=== PATIENT | female | born 1945 | race Caucasian/White ===

== ENCOUNTER 2025-02-06 14:52 | Emergency (ER) | payer MEDICARE, OTHER ==
[~2025-02-06] VITALS: Ht 157.5 cm; Wt 90.0 kg
[~2025-02-06 14:52] MED LIST: CETI-90 PO; LISI5TAB PO; MULT-1141 PO; OSC500T PO; RIVA20TA PO; SIMV-42 PO; VIT D PO
--- NOTE | 2025-02-06 15:07 | ELECTROCARDIOGRAPH REPORT ---
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 Scott Ames Measurements Intervals [place] Rate: 123 P: 58 [place]: 168 QRS: 41 QRSD: 83 T: 50 QT: 299 QTc: 428 Interpretive Statements Sinus tachycardia Low voltage, precordial leads Electronically Signed On 02-06-2025 16:08:[address] Scott Ames Please click the below link to view image of tracing.
--- NOTE | 2025-02-06 15:22 | Physician Documentation ---
History of Present Illness ~ Chief Complaint: Hyperthermia Stated Complaint: HYPERTHERMIA Time Seen by MD: 15:00 OK to notify your PCP?: Yes Source: patient, RN/MD, EMS, RN notes reviewed, EMS notes reviewed, old records Mode of Arrival: EMS Exam Limitations: no limitations HPI 79 year old female seen in bed nine presents to the emergency department via EMS for complaints of heat exhaustion. She states that she was out today in the heat when she began feeling warm and flush. Along with feeling warm she began to feel weak and she states she felt her legs give out while headed back to her car. At this time she was picked up by EMS and given a liter of fluids en route. When EMS reached her she had a heart rate in the 150s but it has now decreased to be in the 120s. Upon arrival she still complains of feeling warm but denies any chest pain or shortness of breath. She endorses daily alcohol use. Of note patient has a history of skin cancer and she had an MRI last week revealing that she is now cancer free. Patient denies any other associated symptoms at this time. Patient denies any other alleviating or exacerbating factors. Medication Reconciliation Allergies: Coded Allergies: Penicillins (Unverified Allergy, Unknown, 02/06/25) RASH Scheduled Calcium Carbonate* (Oscal*), 1 TAB PO DAILY, (Reported) Cetirizine HCl (Zyrtec), 1 TABLET PO DAILY, (Reported) Lisinopril (Prinivil), 1 TABLET PO DAILY, (Reported) Mu-Vits-Min Th/Lycopene/Lutein (Centrum Silver Tablet), 1 EACH PO DAILY, (Reported) Rivaroxaban (Xarelto), PO DAILY, (Reported) Simvastatin* (Zocor*), 2 TABLET PO HS, (Reported) [Vit D], PO DAILY, (Reported) Past Medical History Past Medical History: Hypertension, *CANCER* Smoking Status: Never smoker Alcohol Use: Heavy Drug Use: none Review of Systems All Other Systems at this time: Reviewed and Negative ROS As stated above in the HPI, otherwise all systems are reviewed and negative. Physical Exam Vital Signs: RN Vital Signs have been reviewed: Yes, Temperature: 98.7, Source: Oral, Heart Rate: 124, Respiratory Rate: 16, BP: 124/49, Pulse Oximetry: 93, Weight: 90.000 Oxygen Flow Rate: 0 Pulse Oximetry Reflects: adequate oxygenation Physical Exam General: Patient is warm, red, and flushed. The patient is well developed, well nourished, nontoxic appearing and is in no acute distress. Skin: [place], warm and dry with no rashes. HEENT: Head was normocephalic and atraumatic. Eyes - pupils equal, round, reactive to light and accommodation. Extraocular movements were intact. Conjunctivae were nonicteric. Ears - bilateral tympanic membranes were normal. The mouth and oropharynx were clear with moist mucous membranes. There were no pharyngeal exudates or erythema. Neck: Supple and nontender. There was no jugular venous distention, lymphadenopathy, thyromegaly or masses. Chest: Clear to auscultation bilaterally without wheezes, rales or rhonchi. No accessory muscle use. No dullness to percussion. Heart: Rapid heart rate. S1, S2. No murmurs. Palpation of the chest wall was normal. No rubs or thrills. Abdomen: Soft, nontender and nondistended. Positive bowel sounds. No guarding or rebound. No hepatosplenomegaly or palpable masses. Extremities: No cyanosis, clubbing or edema. The patient moves all extremities. Pulses were equal and symmetric. Neurologic: Cranial nerves II-XII were intact. Sensation was intact to light touch throughout. Motor strength was 5/5 in all four extremities. Deep tendon reflexes were intact in both upper and lower extremities. Psychologic: The patient was oriented to person, place and time. The patient demonstrated appropriate judgement and insight. Progress Results/Orders Reviewed/noted all lab results: Yes Results/Orders Orders - TOBIAS SIN MD Urinalysis, Cult If Indicated (02/06/25 15:00) Electrocardiogram (02/06/25 15:00) Chest,Single View (02/06/25 15:00) Monitor (02/06/25 15:00) Saline Lock (02/06/25 15:00) Completed Orders - TOBIAS SIN MD Cbc/Diff (02/06/25 15:00) Lipase (02/06/25 15:00) Ethanol (02/06/25 15:00) MG (02/06/25 15:00) Myoglobin (02/06/25 15:00) CK (02/06/25 15:00) Pt Inr (02/06/25 15:00) PTT (02/06/25 15:00) Electrocardiogram (02/06/25 15:00) Chest,Single View (02/06/25 15:00) Normal Saline 1000ml (Sodium Chloride 10 (02/06/25 15:00) Nothing By Mouth (02/06/25 Dinner) BMP (02/06/25 15:00) Hs Troponin I W Calculations (02/06/25 15:00) Medications Received in ER Medications (Trade) Dose Ordered Sig/[place]ent[place] Route PRN Reason Start Time Stop Time Status Last Admin Dose Admin (sodium chloride 1000ml IV soln) 1,000 ml ONCE ONCE IVB 02/06/25 15:00 02/06/25 15:02 DC 02/06/25 15:36 1,000 ML Vital Signs 02/06/25 02/06/25 02/06/25 02/06/25 15:11 15:42 15:42 18:01 Temp 98.7 98.7 98.7 Pulse 124 112 20 Resp 16 20 20 20 B/P (MAP) 124/49 124/49 (74) 124/49 Pulse Ox 93 95 95 O2 Flow Rate 0 0 FiO2 37 Laboratory Tests Test 02/06/25 15:16 White Blood Count 4.4 L Red Blood Count 3.35 L Hemoglobin 11.4 L Hematocrit 33.8 L Mean Corpuscular Volume 100.9 H Mean Corpuscular Hemoglobin 33.9 H Mean Corpuscular Hemoglobin Concent 33.6 Red Cell Distribution Width 14.5 Platelet Count 157 Mean Platelet Volume 7.3 L Neutrophils (%) (Auto) 61.0 Lymphocytes (%) (Auto) 21.8 Monocytes (%) (Auto) 12.7 H Eosinophils (%) (Auto) 3.9 Basophils (%) (Auto) 0.6 Neutrophils # (Auto) 2.7 Lymphocytes # (Auto) 1.0 L Monocytes # (Auto) 0.6 Eosinophils # (Auto) 0.2 Basophils # (Auto) 0.0 CBC Comment Prothrombin Time 10.7 INR International Normalized Ratio 1.0 Activated Partial Thromboplast Time 22 Coagulation Comments Sodium Level 144 Potassium Level 4.0 Chloride Level 113 H Carbon Dioxide Level 22.8 L Anion Gap 8 Blood Urea Nitrogen 18 Creatinine 1.13 H Estimated GFR/1.73 m2 46 BUN/Creatinine Ratio 15.9 Glucose Level 131 H Calcium Level 8.7 Magnesium Level 1.6 Total Creatine Kinase 62 Myoglobin 119.0 H Troponin I High Sensitivity 7 Albumin 3.0 L Lipase 70 Chemistry Comments Ethyl Alcohol Level < 10 Re-Evaluation Re-Evaluation : Re-Evaluation: Improved Progress Patient was seen and examined. Patient was given reassurance. The patient was given fluids her skin was flushed. Laboratory work was obtained and reassuring she has a macrocytic anemia with a hemoglobin of 11 and hematocrit of 33 with a MCV of 100.9 she does have a drinking history. CO2 has a bit low acidotic at 22.8 creatinine is 1.13. Myoglobin was slightly elevated at 119. Alcohol was negative. Patient received 2 L of fluids feeling much better collar resolved no longer flushed the longer nauseated. Patient's skin is also cool no longer hyperemic. Patient was then discharged home encouraged to have a fluid diet stay out of the heat. hall monitor interpretation shows sinus tachycardia heart rate 100s, abnormal, my interpretation. Pulse oximetry monitor interpretation shows normal oxygenation 95% room air, normal, my interpretation. 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 Tobias Sin Measurements Intervals [place] Rate: 123 P: 58 [place]: 168 QRS: 41 QRSD: 83 T: 50 QT: 299 QTc: 428 Interpretive Statements Sinus tachycardia Low voltage, precordial leads Electronically Signed On 02-06-2025 16:08:[address] Tobisa Sin Please click the below link to view image of tracing. EKG Date and Time:02/06/25 1505 Electronically Signed by: TOBIAS SIN MD Date and Time: 02/06/25 1608 Chest X-Ray : Additional Comments CHEST RADIOGRAPH Indication: Weakness Technique: Single frontal view of the chest was obtained COMPARISON: None FINDINGS: Lines and Tubes: None Lungs: Clear Pleura: No effusion. No pneumothorax. Cardiomediastinal contours: Unremarkable Bones: Unremarkable IMPRESSION: No acute disease. Electronically Signed by:CHARLI BELL MD Date & Time: 02/06/25 1541 Medical Decision Making Additional info obtained from: old records Differential Dx:Considerations: Include: Dehydration, Electrolyte imbalance, Encephalopathy, Heat cramps, Heat exhaustion, Heat stoke, Heat syncope, Heat te radha, Hypotension, Prickly heat, Renal failure, Sepsis, Other Departure Time of Disposition: 17:50 Disposition: 01 HOME / SELF CARE / HOMELESS Impression: Primary Impression: Heat exhaustion Qualified Codes: T67.5XXA - Heat exhaustion, unspecified, initial encounter Condition: Stable Discharge Instructions: Heat Exhaustion Referrals: NO PRIMARY CARE PROVIDER (PCP) Education Educated: Patient Educated regarding: diagnosis, treatment, prognosis, need for follow up, other Signature Scribe Signature: Scribed for Tobias Sin MD by Kimberley Tapia . 02/06/25 15:41 Attestation: The note accurately reflects work and decisions made by me.Tobias Sin MD 02/06/25 15:22 TOBIAS SIN MD February 06, 2025 15:22 KIMBERLEY DUONG February 06, 2025 15:40
[2025-02-06] MEDS: normal saline 1000ML IV soln IVB ONE (15:36)
--- NOTE | 2025-02-06 15:44 | RADIOLOGY REPORT ---
CHEST RADIOGRAPH Indication: Weakness Technique: Single frontal view of the chest was obtained COMPARISON: None FINDINGS: Lines and Tubes: None Lungs: Clear Pleura: No effusion. No pneumothorax. Cardiomediastinal contours: Unremarkable Bones: Unremarkable IMPRESSION: No acute disease.
[2025-02-06 15:51] LABS: BASOPHILS % (AUTO) 0.6 % (0-1); EOSINOPHILS # (AUTO) 0.2 X10'3 (0-0.9); EOSINOPHILS % (AUTO) 3.9 % (0-6); HEMATOCRIT 33.8 % (35.0-45.0); HEMOGLOBIN 11.4 g/dl (12.0-16.0); LYMPHOCYTES % (AUTO) 21.8 % (21-51); MEAN CORPUSCULAR HEMOGLOBIN 33.9 PG (27.0-31.0); MEAN CORPUSCULAR HGB CONC 33.6 g/dL (33.0-36.5); MEAN CORPUSCULAR VOLUME 100.9 FL (78-98); MEAN PLATELET VOLUME 7.3 FL (7.4-10.4); MONOCYTES # (AUTO) 0.6 X10'3 (0-0.9); MONOCYTES % (AUTO) 12.7 % (2-12); NEUTROPHILS # (AUTO) 2.7 X10'3 (1.8-7.7); PLATELET COUNT 157 X10'3 (140-440); RED BLOOD COUNT 3.35 X10'6 (4.20-5.60); RED CELL DISTRIBUTION WIDTH 14.5 % (11.5-14.5); WHITE BLOOD COUNT 4.4 X10'3 (4.5-11.0)
[2025-02-06 16:03] LABS: APTT 22 SECONDS (22-32); PROTHROMBIN TIME 10.7 SECONDS (9.0-12.0)
[2025-02-06 16:16] LABS: ANION GAP 8 (8-16); BLOOD UREA NITROGEN 18 MG/DL (7-18); BUN/CREATININE RATIO 15.9 (10.0-20.0); CALCIUM 8.7 MG/DL (8.5-10.1); CHLORIDE 113 MMOL/L (99-107); CREATINE KINASE 62 U/L (26-192); CREATININE 1.13 MG/DL (0.40-0.90); GLUCOSE 131 MG/DL (70-104); LIPASE 70 U/L (16-77); MAGNESIUM 1.6 MG/DL (1.5-2.4); SODIUM 144 MMOL/L (135-145); TOTAL CARBON DIOXIDE 22.8 MMOL/L (24-32); eCRCL 31 ML/MIN; eGFR 46 ML/MIN
[2025-02-06 16:19] LABS: ETHANOL < 10 MG/DL (<10)
[2025-02-06 18:01] VITALS: BP 124/49; PULSE 20; RESP 20; TEMP 98.7; O2SAT 95
== END 2025-02-06 18:04 | disposition home or self-care (01) ==
LOC: ER 14:53
DX: T67.5XXA Heat exhaustion, unspecified, initial encounter (principal); I10 Essential (primary) hypertension; R53.1 Weakness; Z88.0 Allergy status to penicillin; Z85.828 Personal history of other malignant neoplasm of skin; Z79.899 Other long term (current) drug therapy; X58.XXXA Exposure to other specified factors, initial encounter; Y93.89 Activity, other specified; Y92.89 Other specified places as the place of occurrence of the external cause; Y99.8 Other external cause status
CPT/HCPCS: 36415; 71045; 80048; 82550; 83690; 83735; 83874; 84484; 85025; 85610; 85730; 93005; 96360; 96361; 99285; A4620; G0480; J7030; 80320